=== PATIENT | female | born 1975 | race Caucasian/White ===

== ENCOUNTER 2016-03-21 23:49 | Emergency (ER) | payer OTHER ==
[2016-03-22] MEDS ORDERED: DIPHENHYDRAMINE HCL 50 MG/1 ML VIAL ONE (00:31)
[2016-03-22] MEDS ORDERED: METOCLOPRAMIDE HCL 5 MG/ML 2ML VIAL ONE (00:31)
[2016-03-22] MEDS ORDERED: KETOROLAC TROMETHAMINE 60 MG/2 ML VIAL ONE (00:31)
== END 2016-03-22 01:18 | disposition home or self-care (01) ==
LOC: ED 23:49
DX: G44.209 Tension-type headache, unspecified, not intractable (principal); G43.909 Migraine, unspecified, not intractable, without status migrainosus
CPT/HCPCS: 99282; 96372 ×3; 99283; J1200; J2765; J1885